=== PATIENT | female | born 2000 | race Caucasian/White ===

== ENCOUNTER 2024-01-05 04:58 | Inpatient (IN) | payer OTHER ==
[2024-01-07 11:30] VITALS: BP 118/74; TEMP 97.8
== END 2024-01-07 12:20 | disposition home or self-care (01) | DRG 788 ==
LOC: CSHLD/OP 04:58 → CSHLD 07:00 → CSHPP 17:00
PROVIDERS: ADMIT Obstetrics & Gynecology; ATTEND Obstetrics & Gynecology
PROC: 10H07YZ Insertion of Other Device into Products of Conception, Via Natural or Artificial Opening (ICD-10-PCS; principal; 2024-01-05)
PROC: 10D00Z1 Extraction of Products of Conception, Low, Open Approach (ICD-10-PCS; 2024-01-05)
DX: O99.62 Diseases of the digestive system complicating childbirth (principal); Z3A.38 38 weeks gestation of pregnancy; Z37.0 Single live birth; K21.9 Gastro-esophageal reflux disease without esophagitis; Z79.899 Other long term (current) drug therapy; O76 Abnormality in fetal heart rate and rhythm complicating labor and delivery; O77.0 Labor and delivery complicated by meconium in amniotic fluid
CPT/HCPCS: 36415; 51702; 74018; 82805; 85027; 86780; 86850; 86900; 86901; 87340; 99285; J0665; J1100; J1885; J2274; J2405; J2590; J3010; J3105